=== PATIENT | female | born 1990 | race African-American/Black ===

== ENCOUNTER 2021-12-02 12:53 | Emergency (ER) | payer MEDICAID ==
[~2021-12-02] VITALS: Ht 162.6 cm; Wt 90.7 kg
--- NOTE | 2021-12-02 13:11 | NUR ---
Patient discharged to home in stable condition. Written and verbal after care instructions given. Patient verbalizes understanding of instructions. Stressed follow up or return to ER for worsening s/s.
== END 2021-12-02 13:14 | disposition home or self-care (01) ==
LOC: ER 12:53
DX: Z12.81 Encounter for screening for malignant neoplasm of oral cavity (principal)
CPT/HCPCS: A4663

== ENCOUNTER 2024-12-05 18:55 | Emergency (ER) | payer BC, MEDICAID ==
[~2024-12-05] VITALS: Ht 165.1 cm; Wt 113.4 kg
[2024-12-05 20:06] LABS: EOSINOPHILS % (AUTO) 1.8 % (0.0-7.0); HEMATOCRIT 36.2 % (31.2-41.9); HEMOGLOBIN 11.6 g/dL (10.9-14.3); LYMPHOCYTES % (AUTO) 27.8 % (20.5-51.5); MEAN CORPUSCULAR HEMOGLOBIN 24.9 uug (24.7-32.8); MEAN CORPUSCULAR HGB CONC 32 g/dL (32.3-35.6); MEAN CORPUSCULAR VOLUME 77.3 fL (75.5-95.3); MONOCYTES % (AUTO) 7.3 % (0.0-11.0); NEUTROPHILS % (AUTO) 62.6 % (38.5-71.5); PLATELET COUNT (AUTO) 316 K/uL (179-408); RED BLOOD CELL COUNT(AUTO) 4.68 MIL/uL (3.63-4.92); RED CELL DISTRIBUTION WIDTH 15.8 % (12.3-17.7); WHITE BLOOD COUNT (AUTO) 13.7 K/uL (3.8-11.8)
[2024-12-05 20:07] LABS: BASOPHILS # (AUTO) 0.1 K/UL (0.0-0.2); BASOPHILS % (AUTO) 0.5 % (0.0-2.0); EOSINOPHILS # (AUTO) 0.2 K/uL (0.0-0.7); LYMPHOCYTES # (AUTO) 3.8 K/uL (0.8-4.8); NEUTROPHILS # (AUTO) 8.6 K/uL (1.8-8.9)
[2024-12-05 20:13] LABS: CALCIUM 9.2 mg/dL (8.5-10.1); CREATININE 1.1 mg/dL (0.6-1.3); DIFFERENTIAL COMMENT 1
[2024-12-05 20:15] LABS: *BILIRUBIN,URIN NEGATIVE (NEGATIVE); *BLOOD, URINE NEGATIVE (NEGATIVE); *CLARITY,URINE CLEAR (CLEAR); *COLOR,URINE YELLOW (YELLOW); *KETONES,URINE NEGATIVE (NEGATIVE); *PROTEIN,URINE NEGATIVE (NEGATIVE); *UROBILINOGEN,URINE 0.2 E.U./dl (NORMAL); LEUKOCYTE ESTERASE ,URINE NEGATIVE (NEGATIVE); NITRITE, URINE NEGATIVE (NEGATIVE); PH,URINE 5.5 (5.0-8.0); UGLUCOSE NEGATIVE (NEGATIVE)
[2024-12-05 20:16] LABS: *URINE HCG, QUAL NEGATIVE (NEGATIVE)
[2024-12-05] MEDS ORDERED: CLONIDINE HCL 0.1 MG TABLET ONE ×2 (20:18→21:35)
[2024-12-05 20:19] LABS: ALBUMIN 3.5 g/dL (3.4-5.0); BILIRUBIN,TOTAL 0.5 mg/dL (0.2-1.0); TOTAL PROTEIN, SERUM 7.5 g/dL (6.4-8.2)
[2024-12-05] MEDS: CLONIDINE HCL 0.1 MG TABLET PO ONE ×2 (20:22→21:40)
[2024-12-05] MEDS ORDERED: AZIT250T PO (21:19)
[2024-12-05] MEDS ORDERED: BENZ-13 PO (21:19)
[2024-12-05 21:45] VITALS: BP 149/88; O2SAT 98
== END 2024-12-05 21:45 | disposition home or self-care (01) ==
LOC: ER 18:55
DX: J40 Bronchitis, not specified as acute or chronic (principal); I10 Essential (primary) hypertension; R11.0 Nausea; Z20.822 Contact with and (suspected) exposure to COVID-19
CPT/HCPCS: 36415; 71045; 84703; 85025; A4606; A4663